=== PATIENT | male | born 1955 | race Hispanic/Latino ===

== ENCOUNTER → 2018-11-12 | Outpatient (CLI) | payer OTHER, MEDICARE ==
--- NOTE | 2018-11-12 12:38 | NUR ---
MBSS COMPLETED. -S/S OF ASPIRATION. RECOMMEND PUREED, THIN LIQUIDS; PILLS CRUSHED WITH APPLESAUCE. PATIENT INFORMATION: Pt IS A 62 YEAR OLD MALE REFERRED FOR AN MBSS SECONDARY TO [facility] IN [place] 3 WEEKS AGO. CAREGIVER REPORTS THAT THEY NOTICED THAT THE Pt HAD FINISHED EATING AND BROUGHT BACK A PIECE OF CHICKEN. Pt IS CURRENTLY IN A LONG TERM WHERE HE IS ASSISTED WITH ADLs. Pt DID NOT VERBALIZE DURING THE MBSS. Pt HAS A PAST MEDICAL HISTORY SIGNIFICANT FOR PROFOUND IDD, GERD, URINARY AND FECAL INCONTINENCE, CHRONIC CONSTIPATION, DYSPHAGIA, PARTIAL COMPLEX SEIZURES TONIC/CLONIC, SPASTIC QUADRIPLEGIA, CONTRACTURES OF JOINTS, KYPHOSIS/SCOLIOSIS, SPASTIC HIATAL HERNIA, HYPOTHYROIDISM, SUBLUXATION OF RIGHT SHOULDER DUE TO BRACHIAL PLEXUS INJURY A CHILD, ABDOMINAL LFTs, AND HYPERLIPIDEMIA. MBSS INTERPRETATION: PT PRESENTS WITH MODERATE ORAL AND MILD PHARYNGEAL DYSPHAGIA CAUSED BY DECREASED DECREASED ORAL MOTOR COORDINATION, TONGUE BASE RETRACTION, DELAYED PHARYNGEAL RESPONSE TRIGGER, EVIDENCED BY SEVERELY DECREASED ROTARY MOTION DURING MASTICATION, SOLID SWALLOWED WHOLE, POOLING IN VALLECULAE (CLEARED WITH INNATE RE-SWALLOW AND LIQUID WASH). NO PENETRATION OR ASPIRATION PRESENT AT THE TIME OF THE MBSS. PT IS AT HIGH RISK FOR CHOCKING WITH SOLIDS. TRIALS: 1. TSP PUREED: GOOD (RESIDUE IN VALLECULAE) 2. TSP PUDDING: GOOD (RESIDUE IN VALLECULAE CLEARED WITH RE-SWALLOW) 3. TSP MIXED: DECREASED MASTICATION, SWALLOWED BOLUS WHOLE 4. TSP THIN LIQUIDS: GOOD 5. CUP SIP THIN LIQUIDS BY ADZING AND BORING MACHINE FEEDER: GOOD 6. CUP SIP THIN LIQUIDS BY Pt: GOOD RECOMMENDATIONS: 1. PUREED, THIN LIQUIDS; PILLS CRUSHED WITH APPLESAUCE. 2. SAFE SWALLOW PRECAUTIONS: *SEATED AT 90 *SMALL BITES AND SIPS *ALTERNATE BITES AND SIPS RISKS AND CONSEQUENCES OF ASPIRATION WERE REVIEWED WITH Pt'S CAREGIVER. THEY WERE PROVIDED WITH A WRITTEN HANDOUT OF RECOMMENDATIONS. ALL QUESTIONS ANSWERED AT THIS TIME. G-CODES SWALLOWING: [id number] Addendum: 11/12/18 at 1250 by MATILDA PEREZ, [facility] Amended: Links added.
== END | disposition home or self-care (01) ==
LOC: RAH 08:43
PROVIDERS: ATTEND Internal Medicine
DX: R13.10 Dysphagia, unspecified (principal); R09.89 Other specified symptoms and signs involving the circulatory and respiratory systems; T17.928A Food in respiratory tract, part unspecified causing other injury, initial encounter; X58.XXXA Exposure to other specified factors, initial encounter; Y93.89 Activity, other specified; Y92.89 Other specified places as the place of occurrence of the external cause; Y99.8 Other external cause status
CPT/HCPCS: 74230; 92611

== ENCOUNTER → 2019-09-22 | Outpatient (CLI) | payer OTHER, MEDICARE ==
--- NOTE | 2019-09-22 11:00 | NUR ---
MBSS COMPLETED. -S/S OF ASPIRATION. RECOMMEND PUREED, THIN LIQUIDS; PILLS CRUSHED WITH APPLESAUCE. RECOMMENDATIONS: 1. COMPENSATORY STRATEGIES 2. GI CONSULT, PLEASE CONSIDER UPPER GI OFFICE MANAGER PROVIDED RESULTS AND RECOMMENDATIONS WITH CAREGIVER. Addendum: 09/22/19 at 1346 by MATILDA PEREZ, [facility] Amended: Links added.
== END | disposition home or self-care (01) ==
LOC: RAH 10:38
PROVIDERS: ATTEND Internal Medicine
DX: R13.12 Dysphagia, oropharyngeal phase (principal); R47.89 Other speech disturbances
CPT/HCPCS: 74230; 92611

== ENCOUNTER 2021-07-05 14:12 | Observation (INO) | payer OTHER, MEDICARE ==
[~2021-07-05] VITALS: Ht 152.4 cm; Wt 52.2 kg
[2021-07-05] MEDS ORDERED: 0.9%NACL 1000ML 1,000 ML IV ONE (15:30)
[2021-07-05 15:32] LABS: BASOPHILS % (AUTO) 0.4 % (0.0-5.0); EOSINOPHILS % (AUTO) 0.7 % (0.0-8.0); HEMATOCRIT 37.5 % (42-54); LYMPHOCYTES % (AUTO) 25.9 % (21.0-51.0); MEAN CORPUSCULAR HEMOGLOBIN 31.2 pg (27.0-33.0); MEAN CORPUSCULAR HGB CONC 31.7 g/dL (32.0-36.0); MEAN CORPUSCULAR VOLUME 98.2 fL (79-99); MONOCYTES % (AUTO) 18.5 % (3.0-13.0); NEUTROPHILS % (AUTO) 54.3 % (40.0-77.0); PLATELET COUNT (AUTO) 105 K/uL (130-400); RED BLOOD CELL COUNT(AUTO) 3.82 MIL/uL (4.50-6.20); RED CELL DISTRIBUTION WIDTH 13.4 % (11.0-15.5); WHITE BLOOD COUNT (AUTO) 4.6 K/uL (4.8-10.8)
[2021-07-05 15:48] LABS: BILIRUBIN,URINE Negative (NEGATIVE); COLOR,URINE Yellow (YELLOW); GLUCOSE, URINE (UA) Negative (NEGATIVE); KETONES,URINE Negative (NEGATIVE); LEUKOCYTE ESTERASE ,URINE Negative (NEGATIVE); NITRATE,URINE Negative (NEGATIVE); OCCULT BLOOD,URINE Negative (NEGATIVE); PH,URINE 7.5 (5.0-8.0); PROTEIN,URINE Negative (NEGATIVE)
[2021-07-05 15:49] LABS: APPEARANCE,URINE CLOUDY (CLEAR)
[2021-07-05 15:51] LABS: CREATININE 0.9 mg/dL (0.5-1.5); POTASSIUM 3.8 mmol/L (3.5-5.1)
[2021-07-05 16:14] LABS: ALBUMIN 2.4 g/dL (3.5-5.0); BILIRUBIN,TOTAL 0.3 mg/dL (0.2-1.0); TOTAL PROTEIN, SERUM 6.6 g/dL (6.0-8.3)
[2021-07-05 16:24] LABS: BACTERIA,URINE Few /HPF (None Seen); RBC,URINE None Seen /HPF (0-1); SQUAMOUS EPITHELIAL CELL,UR None Seen /HPF (0-2); WBC,URINE None Seen /HPF (0-1)
[2021-07-05 16:25] LABS: AMORPHOUS SEDIMENT,UR Many /LPF (None Seen)
[2021-07-05] MEDS ORDERED: IOHEXOL-350 75 ML VIAL IV ONE (17:36)
[2021-07-05] MEDS ORDERED: ZOSYN 3.375GM+NS 50ML 50 ML IV SCH (19:00)
[2021-07-05] MEDS ORDERED: ONDANSETRON 4MG INJ IVP PRN (20:00)
[2021-07-05] MEDS ORDERED: ACETAMINOPHEN 325 MG TAB PO PRN (20:00)
[2021-07-05] MEDS ORDERED: LORAZEPAM 2 MG/ML 1 ML VIAL IVP PRN (20:00)
[2021-07-05] MEDS: CEFTRIAXONE 1G VIAL IVP SCH (20:52)
[2021-07-05] MEDS: 0.9%NACL 1000ML 1,000 ML IV SCH (20:52)
[2021-07-05] MEDS ORDERED: HALOPERIDOL 5 MG TABLET PO PRN (22:30)
[2021-07-05] MEDS ORDERED: OXYB-66 PO (22:47)
[2021-07-05] MEDS ORDERED: TOPI200T16 PO (22:47)
[2021-07-05] MEDS ORDERED: DIVA500T69 PO (22:47)
[2021-07-05] MEDS ORDERED: PRAV40TA3 PO (22:47)
[2021-07-05] MEDS ORDERED: FAMO20TA8 PO (22:47)
[2021-07-05] MEDS ORDERED: LEVO75CA5 PO (22:47)
[2021-07-05] MEDS ORDERED: POLY17PO4 PO (22:47)
[2021-07-05] MEDS ORDERED: HALO5TAB2 PO (22:47)
[2021-07-05] MEDS ORDERED: LORA10TA7 PO (22:47)
[2021-07-05] MEDS ORDERED: DOCU-116 PO (22:47)
[2021-07-05] MEDS ORDERED: POTASSIUM CHLORIDE 10% ELIXIR 20 MEQ/15 ML UDCUP PO PRN (23:00)
[2021-07-05] MEDS ORDERED: DIPHENHYDRAMINE HCL 25 MG CAPSULE PO PRN (23:00)
[2021-07-05] MEDS ORDERED: KCL 20 MEQ ERTAB PO PRN (23:00)
[2021-07-05] MEDS ORDERED: DiphenhydrAMINE HCL 50 MG/ML VIAL IV PRN (23:00)
[2021-07-05] MEDS ORDERED: LIDOCAINE HCL-MPF 1% 2ML VIAL IV PRN (23:00)
[2021-07-05] MEDS ORDERED: POTASSIUM CHLORIDE 20MEQ/100ML 100 ML IV PRN (23:00)
[2021-07-06] VITALS (7 sets, daily range): BP systolic 107–141; BP diastolic 56–84
[2021-07-06] MEDS: 0.9%NACL 1000ML 1,000 ML IV SCH ×3 (03:34→14:50)
[2021-07-06 06:18] LABS: BASOPHILS % (AUTO) 0.4 % (0.0-5.0); HEMATOCRIT 33.3 % (42-54); LYMPHOCYTES % (AUTO) 29.5 % (21.0-51.0); MEAN CORPUSCULAR HEMOGLOBIN 31.3 pg (27.0-33.0); MEAN CORPUSCULAR HGB CONC 30.9 g/dL (32.0-36.0); MEAN CORPUSCULAR VOLUME 101.2 fL (79-99); MONOCYTES % (AUTO) 16.1 % (3.0-13.0); NEUTROPHILS % (AUTO) 52.8 % (40.0-77.0); PLATELET COUNT (AUTO) 98 K/uL (130-400); RED BLOOD CELL COUNT(AUTO) 3.29 MIL/uL (4.50-6.20); RED CELL DISTRIBUTION WIDTH 13.5 % (11.0-15.5); WHITE BLOOD COUNT (AUTO) 4.9 K/uL (4.8-10.8)
[2021-07-06 06:41] LABS: BILIRUBIN,TOTAL 0.3 mg/dL (0.2-1.0); CREATININE 0.6 mg/dL (0.5-1.5); POTASSIUM 3.7 mmol/L (3.5-5.1); TOTAL PROTEIN, SERUM 5.8 g/dL (6.0-8.3)
[2021-07-06] MEDS: LEVOTHYROXINE 75 MCG TABLET PO SCH (07:30)
[2021-07-06] MEDS: FAMOTIDINE 20MG TAB PO SCH (09:00)
[2021-07-06] MEDS: DOCUSATE SODIUM 100 MG CAP PO SCH ×2 (09:00→21:28)
[2021-07-06] MEDS: ENOXAPARIN SODIUM 30 MG/0.3 ML SQ SCH (09:00)
[2021-07-06] MEDS: POLYETHYLENE GLYCOL 3350 17 GM POWD.PACK PO SCH (09:00)
[2021-07-06] MEDS: LORATADINE 10 MG TABLET PO SCH (09:00)
[2021-07-06] MEDS: DIVALPROEX SODIUM 250 MG TABLET.DR PO SCH ×2 (09:00→14:00)
[2021-07-06] MEDS: TOPIRAMATE 100 MG TAB PO SCH ×2 (09:00→21:28)
[2021-07-06] MEDS ORDERED: ATORVASTATIN 10 MG TABLET PO SCH (21:00)
[2021-07-06] MEDS ORDERED: OXYBUTYNIN 5 MG TAB.SR.24H PO SCH (21:00)
[2021-07-06] MEDS: CEFTRIAXONE 1G VIAL IVP SCH (21:27)
[2021-07-06] MEDS: VALPROATE SOD 250 MG/5 ML (PO) PO SCH (21:28)
[2021-07-07] MEDS: 0.9%NACL 1000ML 1,000 ML IV SCH ×2 (00:30→11:37)
[2021-07-07 03:39] VITALS: BP 116/58
[2021-07-07] MEDS: LEVOTHYROXINE 75 MCG TABLET PO SCH (06:51)
[2021-07-07 08:00] VITALS: BP 125/67
[2021-07-07] MEDS: LORATADINE 10 MG TABLET PO SCH (10:53)
[2021-07-07] MEDS: FAMOTIDINE 20MG TAB PO SCH (10:53)
[2021-07-07] MEDS: TOPIRAMATE 100 MG TAB PO SCH (10:53)
[2021-07-07] MEDS: VALPROATE SOD 250 MG/5 ML (PO) PO SCH ×2 (10:56→14:57)
[2021-07-07] MEDS: POLYETHYLENE GLYCOL 3350 17 GM POWD.PACK PO SCH (11:01)
[2021-07-07] MEDS: ENOXAPARIN SODIUM 30 MG/0.3 ML SQ SCH (11:03)
[2021-07-07] MEDS: DOCUSATE SODIUM 100 MG CAP PO SCH (11:04)
[2021-07-07] MEDS ORDERED: CEPH500C2 PO (11:51)
[2021-07-07 12:00] VITALS: BP 106/73
== END 2021-07-07 17:45 | disposition home or self-care (01) ==
LOC: EDH 14:12 → EDHIP 18:55 → 3DH 07-06 04:00
PROVIDERS: ADMIT Internal Medicine; ATTEND Internal Medicine
DX: L03.115 Cellulitis of right lower limb (principal); Z20.822 Contact with and (suspected) exposure to COVID-19; K44.9 Diaphragmatic hernia without obstruction or gangrene; M41.9 Scoliosis, unspecified; G82.50 Quadriplegia, unspecified; E78.5 Hyperlipidemia, unspecified; R15.9 Full incontinence of feces; R32 Unspecified urinary incontinence; J18.9 Pneumonia, unspecified organism; R13.10 Dysphagia, unspecified; K76.0 Fatty (change of) liver, not elsewhere classified; E03.9 Hypothyroidism, unspecified; E78.2 Mixed hyperlipidemia; F13.20 Sedative, hypnotic or anxiolytic dependence, uncomplicated; S70.10XA Contusion of unspecified thigh, initial encounter; F73 Profound intellectual disabilities; G40.909 Epilepsy, unspecified, not intractable, without status epilepticus; K57.90 Diverticulosis of intestine, part unspecified, without perforation or abscess without bleeding; K80.20 Calculus of gallbladder without cholecystitis without obstruction; K82.8 Other specified diseases of gallbladder; M47.815 Spondylosis without myelopathy or radiculopathy, thoracolumbar region; M62.82 Rhabdomyolysis; M79.661 Pain in right lower leg; N31.9 Neuromuscular dysfunction of bladder, unspecified; Z79.890 Hormone replacement therapy; Z79.899 Other long term (current) drug therapy; Z98.890 Other specified postprocedural states; Z86.718 Personal history of other venous thrombosis and embolism
CPT/HCPCS: 36415 ×2; 71045; 73522; 74177; 80053 ×2; 81001; 82550 ×2; 83605; 85025 ×2; 87040 ×2; 87088; 87635; 93971; 96361 ×4; 96372; 96374; 96375; 96376; 99285; C9803; G0378 ×43; J0696 ×2; J1650; J2060; J7030 ×2; Q9967

== ENCOUNTER → 2022-05-29 | Outpatient (CLI) | payer OTHER, MEDICARE ==
[~2022-05-29] MED LIST: CEPH500C2 PO; DIVA500T69 PO; DOCU-116 PO; FAMO20TA8 PO; HALO5TAB2 PO; LEVO75CA5 PO; LORA10TA7 PO; OXYB-66 PO; POLY17PO4 PO; PRAV40TA3 PO; TOPI200T16 PO
[2022-05-29 12:53] LABS: HEMATOCRIT 33.3 % (42-54); PLATELET COUNT (AUTO) 167 K/uL (130-400)
[2022-05-29 12:59] LABS: PLATELET FUNCTION ANALYSIS ADP 87 SEC (62-100); PLATELET FUNCTION ANALYSIS EPI 76 SEC (55-192)
== END | disposition home or self-care (01) ==
LOC: LAB 11:38
PROVIDERS: ATTEND Internal Medicine Medical Oncology
DX: D68.9 Coagulation defect, unspecified (principal)
CPT/HCPCS: 36415; 85576

== ENCOUNTER 2022-06-28 11:18 | Inpatient (IN) | payer OTHER, MEDICARE ==
[~2022-06-28] VITALS: Ht 144.8 cm; Wt 54.4 kg
[2022-06-28] MEDS ORDERED: CEFTRIAXONE 1G VIAL IVP ONE (12:00)
[2022-06-28] MEDS ORDERED: 0.9%NACL 1000ML 1,000 ML IV ONE ×2 (12:00→16:27)
[2022-06-28 12:05] LABS: BASOPHILS % (AUTO) 0.1 % (0.0-5.0); HEMATOCRIT 40.5 % (42-54); LYMPHOCYTES % (AUTO) 9.5 % (21.0-51.0); MEAN CORPUSCULAR HEMOGLOBIN 29.7 pg (27.0-33.0); MEAN CORPUSCULAR HGB CONC 31.1 g/dL (32.0-36.0); MEAN CORPUSCULAR VOLUME 95.5 fL (79-99); MONOCYTES % (AUTO) 15.1 % (3.0-13.0); NEUTROPHILS % (AUTO) 74.8 % (40.0-77.0); NUCLEATED RED BLOOD CELLS 0.3 % (0.0-0.19); PLATELET COUNT (AUTO) 286 K/uL (130-400); RED BLOOD CELL COUNT(AUTO) 4.24 MIL/uL (4.50-6.20); RED CELL DISTRIBUTION WIDTH 15.2 % (11.0-15.5)
[2022-06-28 12:32] LABS: CREATININE 1.1 mg/dL (0.5-1.5)
[2022-06-28 12:35] LABS: TOTAL PROTEIN, SERUM 7.2 g/dL (6.0-8.3)
[2022-06-28] MEDS ORDERED: FLUT16H NASAL (16:16)
[2022-06-28] MEDS ORDERED: FERR-72 PO (16:16)
[2022-06-28] MEDS ORDERED: MULT1TAB61 PO (16:16)
[2022-06-28] MEDS ORDERED: DEXT1CAP3 PO (16:16)
[2022-06-28] MEDS ORDERED: CETI10TA57 PO (16:16)
[2022-06-28] MEDS ORDERED: OMEP20CA12 PO (16:16)
[2022-06-28] MEDS ORDERED: ACETAMINOPHEN 325 MG TAB PO PRN ×2 (17:00→22:00)
[2022-06-28] MEDS ORDERED: ONDANSETRON 4MG INJ IVP PRN (17:00)
[2022-06-28] MEDS: 0.9%NACL 1000ML 1,000 ML IV SCH (17:09)
[2022-06-28 17:52] LABS: APPEARANCE,URINE CLEAR (CLEAR); BILIRUBIN,URINE NEGATIVE (NEGATIVE); COLOR,URINE YELLOW (YELLOW); GLUCOSE, URINE (UA) NEGATIVE (NEGATIVE); KETONES,URINE NEGATIVE (NEGATIVE); LEUKOCYTE ESTERASE ,URINE NEGATIVE Leu/uL (NEGATIVE); NITRATE,URINE NEGATIVE (NEGATIVE); OCCULT BLOOD,URINE NEGATIVE (NEGATIVE); PROTEIN,URINE 20 mg/dL (NEGATIVE); UROBILINOGEN,URINE >=8.0 mg/dL (0.2-1.0)
[2022-06-28 17:57] LABS: MUCUS,URINE RARE LPF (None Seen); WBC,URINE 0-1 /HPF (0-1)
[2022-06-28 18:15] VITALS: BP 126/80
[2022-06-28 20:00] VITALS: BP 127/76
[2022-06-28] MEDS ORDERED: POTASSIUM CHLORIDE 20MEQ/100ML 100 ML IV PRN (22:00)
[2022-06-28] MEDS ORDERED: LIDOCAINE HCL-MPF 1% 2ML VIAL IV PRN (22:00)
[2022-06-28] MEDS ORDERED: ONDANSETRON 4MG INJ IV PRN (22:00)
[2022-06-28] MEDS ORDERED: ALBUTEROL 0.083% 2.5 MG/3 ML INH IH PRN (22:00)
[2022-06-28] MEDS ORDERED: KCL 20 MEQ ERTAB PO PRN (22:00)
[2022-06-28] MEDS ORDERED: GUAIFENESIN-DM 200/20 MG 10 ML PO PRN (22:00)
[2022-06-28] MEDS ORDERED: NON-FORMULARY MEDICATION 1 EACH (Cetirizine HCl 10 MG) PO PRN (22:00)
[2022-06-28] MEDS ORDERED: MAGNESIUM 2GM PREMIX 50ML 50 ML IV PRN (22:00)
[2022-06-28] MEDS ORDERED: MAG/ALUM/SIMETH 30 ML UDCUP PO PRN (22:00)
[2022-06-28] MEDS: MORPHINE 2 MG SYG IVP PRN (22:01)
[2022-06-28] MEDS ORDERED: CETIRIZINE HCL 5 MG TABLET PO PRN (22:30)
[2022-06-28 23:38] VITALS: BP 127/75
[2022-06-29] VITALS (25 sets, daily range): BP systolic 129–189; BP diastolic 69–98
[2022-06-29 03:53] LABS: HEMATOCRIT 33.7 % (42-54); MEAN CORPUSCULAR HEMOGLOBIN 29.6 pg (27.0-33.0); MEAN CORPUSCULAR HGB CONC 30.9 g/dL (32.0-36.0); NUCLEATED RED BLOOD CELLS 0.2 % (0.0-0.19); PLATELET COUNT (AUTO) 223 K/uL (130-400); RED BLOOD CELL COUNT(AUTO) 3.51 MIL/uL (4.50-6.20); RED CELL DISTRIBUTION WIDTH 15.1 % (11.0-15.5); WHITE BLOOD COUNT (AUTO) 8.2 K/uL (4.8-10.8)
[2022-06-29 04:01] LABS: CREATININE 0.7 mg/dL (0.5-1.5); POTASSIUM 3.6 mmol/L (3.5-5.1)
[2022-06-29] MEDS: MORPHINE 2 MG SYG IVP PRN ×2 (05:49→16:15)
[2022-06-29] MEDS: 0.9%NACL 1000ML 1,000 ML IV SCH (06:20)
[2022-06-29] MEDS: LEVOTHYROXINE 75 MCG TABLET PO SCH (06:30)
[2022-06-29] MEDS ORDERED: NON-FORMULARY MEDICATION 1 EACH (Ferrous Sulfate 325 MG) PO SCH (09:00)
[2022-06-29] MEDS: MULTIVITAMIN TABLET PO SCH (09:00)
[2022-06-29] MEDS: PANTOPRAZOLE 40 MG TAB DR PO SCH (09:00)
[2022-06-29] MEDS ORDERED: NON-FORMULARY MEDICATION 1 EACH (Levothyroxine Sodium (Levothyroxine) 75 MCG) PO SCH (09:00)
[2022-06-29] MEDS ORDERED: [UNRECOGNIZED DRUG - OTHER] PO SCH (09:00)
[2022-06-29] MEDS ORDERED: FAMOTIDINE 20MG TAB PO SCH (09:00)
[2022-06-29] MEDS ORDERED: MULTIVITAMIN W MINERALS PO SCH (09:00)
[2022-06-29] MEDS ORDERED: LUTEIN PO SCH (09:00)
[2022-06-29] MEDS: FERROUS SULFATE 325 MG TABLET.DR PO SCH (09:00)
[2022-06-29] MEDS ORDERED: NON-FORMULARY MEDICATION 1 EACH (Omeprazole 20 MG) PO SCH (09:00)
[2022-06-29 09:28] LABS: ALBUMIN 1.6 g/dL (3.5-5.0); BILIRUBIN,DIRECT 1.5 mg/dL (0.0-0.3); TOTAL PROTEIN, SERUM 5.8 g/dL (6.0-8.3)
[2022-06-29] MEDS ORDERED: SUGAMMADEX SODIUM 200 MG/2 ML VIAL IV ONE (10:18)
[2022-06-29] MEDS ORDERED: ROCURONIUM 10MG/1ML SYR 10 MG/ML ML ONE (10:19)
[2022-06-29] MEDS ORDERED: PROPOFOL 10 MG/ML 20ML VIAL IV ONE (10:19)
[2022-06-29] MEDS ORDERED: MEPERIDINE-PF 25 MG/ML SYG ONE (11:22)
[2022-06-29] MEDS: 1/2 NS 1000ML 1,000 ML IV SCH (12:46)
[2022-06-29] MEDS: CEFTRIAXONE 1G VIAL IVP SCH (12:46)
[2022-06-29 13:38] LABS: POTASSIUM 3.8 mmol/L (3.5-5.1)
[2022-06-29] MEDS: Pravastatin Sodium 40 MG PO SCH (21:00)
[2022-06-29] MEDS: OXYBUTYNIN 5 MG TAB.SR.24H PO SCH (21:04)
[2022-06-30] MEDS: MORPHINE 2 MG SYG IVP PRN ×2 (03:08→07:32)
[2022-06-30 04:16] VITALS: BP 156/68
[2022-06-30 04:52] LABS: HEMATOCRIT 34.5 % (42-54); MEAN CORPUSCULAR HEMOGLOBIN 29.2 pg (27.0-33.0); MEAN CORPUSCULAR HGB CONC 30.1 g/dL (32.0-36.0); MEAN CORPUSCULAR VOLUME 96.9 fL (79-99); NUCLEATED RED BLOOD CELLS 0.8 % (0.0-0.19); RED BLOOD CELL COUNT(AUTO) 3.56 MIL/uL (4.50-6.20); WHITE BLOOD COUNT (AUTO) 7.4 K/uL (4.8-10.8)
[2022-06-30 05:10] LABS: CREATININE 0.6 mg/dL (0.5-1.5); POTASSIUM 3.4 mmol/L (3.5-5.1)
[2022-06-30] MEDS: 1/2 NS 1000ML 1,000 ML IV SCH (05:22)
[2022-06-30] MEDS: POTASSIUM CHLORIDE 10% ELIXIR 20 MEQ/15 ML UDCUP PO PRN ×2 (05:22→07:10)
[2022-06-30] MEDS: LEVOTHYROXINE 75 MCG TABLET PO SCH (05:23)
[2022-06-30 08:30] VITALS: BP 133/74
[2022-06-30] MEDS: DEXTROSE 5%-WATER 1,000 ML IV SCH (10:00)
[2022-06-30] MEDS: MULTIVITAMIN TABLET PO SCH (10:33)
[2022-06-30] MEDS: PANTOPRAZOLE 40 MG TAB DR PO SCH (10:33)
[2022-06-30] MEDS: FERROUS SULFATE 325 MG TABLET.DR PO SCH (10:33)
[2022-06-30] MEDS: CEFTRIAXONE 1G VIAL IVP SCH (10:40)
[2022-06-30 11:00] VITALS: BP 140/72
[2022-06-30 16:00] VITALS: BP 123/88
[2022-06-30 20:00] VITALS: BP 152/66
[2022-06-30] MEDS: OXYBUTYNIN 5 MG TAB.SR.24H PO SCH (20:52)
[2022-06-30] MEDS: Pravastatin Sodium 40 MG PO SCH (21:00)
[2022-06-30] MEDS: MORPHINE 4 MG SYG IVP PRN (21:14)
[2022-07-01] VITALS (7 sets, daily range): BP systolic 106–145; BP diastolic 55–88
[2022-07-01] MEDS: MORPHINE 4 MG SYG IVP PRN (02:39)
[2022-07-01 05:39] LABS: ALBUMIN 1.6 g/dL (3.5-5.0); BILIRUBIN,DIRECT 2.7 mg/dL (0.0-0.3); CREATININE 0.5 mg/dL (0.5-1.5); TOTAL PROTEIN, SERUM 5.3 g/dL (6.0-8.3)
[2022-07-01] MEDS: LEVOTHYROXINE 75 MCG TABLET PO SCH (06:01)
[2022-07-01] MEDS: DEXTROSE 5%-WATER 1,000 ML IV SCH (06:33)
[2022-07-01 07:03] LABS: HEMATOCRIT 31.9 % (42-54); MEAN CORPUSCULAR HEMOGLOBIN 30.4 pg (27.0-33.0); MEAN CORPUSCULAR HGB CONC 30.1 g/dL (32.0-36.0); MEAN CORPUSCULAR VOLUME 100.9 fL (79-99); NUCLEATED RED BLOOD CELLS 2.1 % (0.0-0.19); RED BLOOD CELL COUNT(AUTO) 3.16 MIL/uL (4.50-6.20); RED CELL DISTRIBUTION WIDTH 15.6 % (11.0-15.5); WHITE BLOOD COUNT (AUTO) 4.7 K/uL (4.8-10.8)
[2022-07-01] MEDS: MORPHINE 2 MG SYG IVP PRN ×3 (08:23→22:24)
[2022-07-01] MEDS: PANTOPRAZOLE 40 MG TAB DR PO SCH (09:00)
[2022-07-01] MEDS: MULTIVITAMIN TABLET PO SCH (09:00)
[2022-07-01] MEDS: FERROUS SULFATE 325 MG TABLET.DR PO SCH (09:00)
[2022-07-01] MEDS: CEFTRIAXONE 1G VIAL IVP SCH (09:27)
[2022-07-01] MEDS ORDERED: IOHEXOL-350 50ML VIAL IV ONE (14:32)
[2022-07-01] MEDS: DIPHENHYDRAMINE HCL 25 MG CAPSULE PO PRN (21:21)
[2022-07-01] MEDS: OXYBUTYNIN 5 MG TAB.SR.24H PO SCH (21:21)
[2022-07-02 03:55] VITALS: BP 148/71
[2022-07-02] MEDS: MORPHINE 2 MG SYG IVP PRN ×5 (04:47→20:15)
[2022-07-02 05:04] LABS: HEMATOCRIT 31.5 % (42-54); MEAN CORPUSCULAR HGB CONC 31.1 g/dL (32.0-36.0); MEAN CORPUSCULAR VOLUME 96.3 fL (79-99); NUCLEATED RED BLOOD CELLS 1.6 % (0.0-0.19); RED BLOOD CELL COUNT(AUTO) 3.27 MIL/uL (4.50-6.20); RED CELL DISTRIBUTION WIDTH 16.1 % (11.0-15.5); WHITE BLOOD COUNT (AUTO) 6.4 K/uL (4.8-10.8)
[2022-07-02 05:19] LABS: ALBUMIN 1.8 g/dL (3.5-5.0); BILIRUBIN,DIRECT 1.1 mg/dL (0.0-0.3); CREATININE 0.5 mg/dL (0.5-1.5); POTASSIUM 3.7 mmol/L (3.5-5.1)
[2022-07-02] MEDS: LEVOTHYROXINE 75 MCG TABLET PO SCH (05:19)
[2022-07-02] MEDS: DEXTROSE 5%-WATER 1,000 ML IV SCH ×2 (05:20→20:50)
[2022-07-02 08:00] VITALS: BP 153/68
[2022-07-02] MEDS: CEFTRIAXONE 1G VIAL IVP SCH (09:16)
[2022-07-02] MEDS: MULTIVITAMIN TABLET PO SCH (09:16)
[2022-07-02] MEDS: PANTOPRAZOLE 40 MG TAB DR PO SCH (09:16)
[2022-07-02] MEDS: FERROUS SULFATE 325 MG TABLET.DR PO SCH (09:16)
[2022-07-02 11:28] VITALS: BP 135/56
[2022-07-02] MEDS ORDERED: BISACODYL 10 MG SUPP.RECT RC ONE (14:00)
[2022-07-02] MEDS ORDERED: LACTULOSE 20 GM/30 ML UDCUP PO ONE ×2 (14:30→15:00)
[2022-07-02 16:00] VITALS: BP 140/84
[2022-07-02 20:14] VITALS: BP 103/52
[2022-07-02] MEDS: OXYBUTYNIN 5 MG TAB.SR.24H PO SCH (20:14)
[2022-07-02] MEDS: DIPHENHYDRAMINE HCL 25 MG CAPSULE PO PRN (20:14)
[2022-07-02 23:38] VITALS: BP 122/71
[2022-07-03] MEDS: DIPHENHYDRAMINE HCL 25 MG CAPSULE PO PRN (01:30)
[2022-07-03] MEDS: MORPHINE 2 MG SYG IVP PRN ×3 (01:30→13:44)
[2022-07-03 04:15] VITALS: BP 108/63
[2022-07-03] MEDS: LEVOTHYROXINE 75 MCG TABLET PO SCH (06:40)
[2022-07-03 08:00] VITALS: BP_SYST 113; BP_SYST 125; BP_DIAS 70; BP_DIAS 77
[2022-07-03 08:28] LABS: ALBUMIN 1.6 g/dL (3.5-5.0); CREATININE 0.5 mg/dL (0.5-1.5); POTASSIUM 3.6 mmol/L (3.5-5.1); TOTAL PROTEIN, SERUM 5.5 g/dL (6.0-8.3)
[2022-07-03] MEDS: CEFTRIAXONE 1G VIAL IVP SCH (09:37)
[2022-07-03] MEDS: MULTIVITAMIN TABLET PO SCH (09:37)
[2022-07-03] MEDS: FERROUS SULFATE 325 MG TABLET.DR PO SCH (09:38)
[2022-07-03] MEDS: PANTOPRAZOLE 40 MG TAB DR PO SCH (09:38)
[2022-07-03 12:00] VITALS: BP 116/60
[2022-07-03] MEDS: LACTULOSE 20 GM/30 ML UDCUP PO PRN ×2 (13:43→16:05)
[2022-07-03 13:58] LABS: PROTHROMBIN TIME 10.9 SEC (9.6-11.6)
[2022-07-03 14:00] LABS: PARTIAL THROMBOPLASTIN TIME 30.6 SEC (26.3-35.5)
[2022-07-03] MEDS ORDERED: MAGNESIUM HYDROXIDE 30 ML/UDCUP PO PRN (14:30)
[2022-07-03] MEDS ORDERED: MAGNESIUM HYDROXIDE 30 ML/UDCUP ONE (14:50)
[2022-07-03 16:00] VITALS: BP 120/90
[2022-07-03] MEDS ORDERED: LACTULOSE 20 GM/30 ML UDCUP PO PRN (16:30)
== END 2022-07-03 17:50 | disposition home or self-care (01) | DRG 562 ==
LOC: EDH 11:18 → EDHIP 16:00 → 4DH 18:34
PROVIDERS: ADMIT Internal Medicine; ATTEND Internal Medicine
PROC: 0RSKXZZ Reposition Left Shoulder Joint, External Approach (ICD-10-PCS; principal; 2022-06-29 10:21)
DX: S42.92XA Fracture of left shoulder girdle, part unspecified, initial encounter for closed fracture (principal); R53.2 Functional quadriplegia; E87.20 Acidosis, unspecified; F13.20 Sedative, hypnotic or anxiolytic dependence, uncomplicated; D68.9 Coagulation defect, unspecified; E87.0 Hyperosmolality and hypernatremia; Z20.822 Contact with and (suspected) exposure to COVID-19; K44.9 Diaphragmatic hernia without obstruction or gangrene; M41.9 Scoliosis, unspecified; G40.909 Epilepsy, unspecified, not intractable, without status epilepticus; E86.0 Dehydration; E88.09 Other disorders of plasma-protein metabolism, not elsewhere classified; D64.9 Anemia, unspecified; E03.9 Hypothyroidism, unspecified; E78.2 Mixed hyperlipidemia; I10 Essential (primary) hypertension; K57.90 Diverticulosis of intestine, part unspecified, without perforation or abscess without bleeding; K59.00 Constipation, unspecified; M47.9 Spondylosis, unspecified; Z86.16 Personal history of COVID-19; Y93.89 Activity, other specified; X58.XXXA Exposure to other specified factors, initial encounter; Y92.89 Other specified places as the place of occurrence of the external cause; Y99.8 Other external cause status
CPT/HCPCS: 36415; 71045; 73020; 73030; 73060; 74176; 74230; 80048; 80051; 80053; 80076; 81001; 83605; 85025; 85027; 85378; 85610; 85651; 85730; 87040; 87635; 87804; 92611; 93005; 93970; 94664; C9803; G0378; J0696; J2175; J2270; J2405; J2704; J3480; J3490; J7030; J7070; Q0163; Q9967

== ENCOUNTER → 2022-07-18 | Outpatient (CLI) | payer OTHER, MEDICARE ==
[~2022-07-18] MED LIST changes: -CEPH500C2 PO; +CETI10TA57 PO; +DEXT1CAP3 PO; -DIVA500T69 PO; -DOCU-116 PO; +FERR-72 PO; +FLUT16H NASAL; -HALO5TAB2 PO; -LORA10TA7 PO; +MULT1TAB61 PO; +OMEP20CA12 PO; -POLY17PO4 PO; -TOPI200T16 PO
== END | disposition home or self-care (01) ==
LOC: RAH 13:15
PROVIDERS: ATTEND Internal Medicine
DX: J90 Pleural effusion, not elsewhere classified (principal); K44.9 Diaphragmatic hernia without obstruction or gangrene; R58 Hemorrhage, not elsewhere classified; I70.0 Atherosclerosis of aorta; Z87.01 Personal history of pneumonia (recurrent); J98.11 Atelectasis
CPT/HCPCS: 71250

== ENCOUNTER → 2023-01-17 | Outpatient (CLI) | payer OTHER, MEDICARE | END | disposition home or self-care (01) | LOC: RAH 08:49 | PROVIDERS: ATTEND Internal Medicine | DX: S20.219A Contusion of unspecified front wall of thorax, initial encounter (principal); K44.9 Diaphragmatic hernia without obstruction or gangrene; M40.294 Other kyphosis, thoracic region; M47.815 Spondylosis without myelopathy or radiculopathy, thoracolumbar region; X58.XXXA Exposure to other specified factors, initial encounter | CPT/HCPCS: 71250 ==

== ENCOUNTER → 2023-01-20 | Outpatient (CLI) | payer OTHER, MEDICARE | END | disposition home or self-care (01) | LOC: RAH 14:00 | PROVIDERS: ATTEND Internal Medicine | DX: T14.8XXA Other injury of unspecified body region, initial encounter (principal); M25.511 Pain in right shoulder; X58.XXXA Exposure to other specified factors, initial encounter; Y93.89 Activity, other specified; Y92.89 Other specified places as the place of occurrence of the external cause; Y99.8 Other external cause status | CPT/HCPCS: 73030 ==

== ENCOUNTER 2023-03-22 13:43 | Emergency (ER) | payer OTHER, MEDICARE ==
[~2023-03-22] VITALS: Ht 160 cm; Wt 65.8 kg
[2023-03-22 13:47] VITALS: BP 123/65; PULSE 75; RESP 18
[2023-03-22] MEDS ORDERED: AMOX1TAB16 PO (15:47)
== END 2023-03-22 16:13 | disposition home or self-care (01) ==
LOC: EDH 13:43
DX: J69.0 Pneumonitis due to inhalation of food and vomit (principal); E78.00 Pure hypercholesterolemia, unspecified; K21.9 Gastro-esophageal reflux disease without esophagitis; Z88.5 Allergy status to narcotic agent; Z79.899 Other long term (current) drug therapy
CPT/HCPCS: 71045

== ENCOUNTER → 2023-03-25 | Outpatient (CLI) | payer OTHER, MEDICARE ==
[~2023-03-25] MED LIST changes: +AMOX1TAB16 PO
== END | disposition home or self-care (01) ==
LOC: RAH 14:07
PROVIDERS: ATTEND Internal Medicine Medical Oncology
DX: S42.291A Other displaced fracture of upper end of right humerus, initial encounter for closed fracture (principal); T14.8XXA Other injury of unspecified body region, initial encounter; X58.XXXA Exposure to other specified factors, initial encounter; Y93.89 Activity, other specified; Y92.89 Other specified places as the place of occurrence of the external cause; Y99.8 Other external cause status
CPT/HCPCS: 77075

== ENCOUNTER 2024-06-02 22:22 | Emergency (ER) | payer OTHER, MEDICARE ==
[~2024-06-02] VITALS: Ht 121.9 cm; Wt 68.0 kg
--- NOTE | 2024-06-02 23:46 | ERN ---
ED Note History of Present Illness Stated Complaint: C/O LACERATION TO FOREHEAD AFTER FALL OFF Chief Complaint: Laceration/Avulsion Time Seen by MD: 22:35 Time Seen by Midlevel: 22:35 Dictation: The patient is a 68-year-old male with a history of GERD, seizures, mental delayed, spastic quadriplegia who presents to the emergency department with complaints of forehead laceration after an accidental fall from wheelchair. Per patient is characterized patient fell forward hitting his head on tire. Denies any LOC, nausea or vomiting. Denies any use of blood thinners. Patient is nonverbal. Acting appropriate as per cardiologist. No other injuries reported. Allergies: Coded Allergies: meperidine (Unverified Allergy, Unknown, 07/05/21) pentazocine (Unverified Allergy, Unknown, 07/05/21) Home Meds Active Scripts Amoxicillin/Potassium Clav (Amox Tr-K Clv 875-125 mg Tab) 1 Each Tablet, 1 EACH PO BID for 7 Days, #14 TAB 0 Refills Prov:SUSU DE JESUS MD 03/22/23 Cetirizine HCl (Cetirizine HCl) 10 Mg Tablet, 10 MG PO DAILY PRN for allergies, #30 TAB Prov:GRETCHEN DAY MD 06/28/22 Multivitamin W-Minerals/Lutein (Cerovite Senior Tablet) 1 Each Tablet, 1 EACH PO DAILY, #90 TAB Prov:GRETCHEN DAY MD 06/28/22 Dextromethorphan HBr/Quinidine (Nuedexta 20-10 mg Capsule) 1 Each Capsule, 1 EACH PO BID, #180 CAP Prov:GRETCHEN ADY MD 06/28/22 Fluticasone Propionate (Flonase Nasal [place]) 50 Mcg/[place], 2 SPRAY NASAL QDP PRN for allegies, #30 SPRAY Prov:GRETCHEN DAY MD 06/28/22 Ferrous Sulfate (Ferrous Sulfate) 325 Mg Tablet, 325 MG PO DAILY, #90 TAB Prov:GRETCHEN DAY MD 06/28/22 Omeprazole (Omeprazole) 20 Mg Capsule.dr, 20 MG PO DAILY, #90 CAP Prov:GRETCHEN DAY MD 06/28/22 Pravastatin Sodium (Pravastatin Sodium) 40 Mg Tablet, 40 MG PO HS, #90 TAB 1 Refill Prov:GRETCHEN DAY MD 07/05/21 Oxybutynin Chloride (Oxybutynin Chloride ER) 5 Mg Tab.er.24, 5 MG PO HS, #90 MG 1 Refill Prov:GRETCHEN DAY MD 07/05/21 Levothyroxine Sodium (Levothyroxine) 75 Mcg Capsule, 75 MCG PO DAILY, #90 CAP 1 Refill Prov:GRETCHEN DAY MD 07/05/21 Famotidine (Famotidine) 20 Mg Tablet, 20 MG PO DAILY, #90 TAB 1 Refill Prov:GRETCHEN DAY MD 07/05/21 Past Medical History Past Medical History: Hypothyroid, Seizure, Other Additional Past Medical Hx: HX OF SPASTIC QUADRIPLEGIA, ACID REFLUX, SCOIOSIS Surgical History: Unknown Social History: Negative, Other RN Note Reviewed/Agreed w/PFSH: Yes Review of System Dictation Constitutional: Negative for fever,chills, and weight loss Eyes: Negative for injury, pain,redness, and discharge ENT: Negative for injury,pain or swelling Cardiovascular: Negative for chest pain, palpitations, and edema Respiratory: Negative for shortness of breath, cough, and wheezing, Abdomen/GI: Negative for abdominal pain, nausea, vomiting, diarrhea, and constipation Back: Negative for injury and pain : Negative for injury, bleeding and discharge MS/Extremity: Negative for injury and deformity Skin: Negative for rash, and discoloration positive for right forehead laceration Neuro: Negative for headache, weakness, numbness, tingling, and seizure Psych: Negative for suicide ideation, homicidal ideation, and hallucinations Initial Vital Sign VS Vital Signs Date Time Temp Pulse Resp B/P (MAP) Pulse Ox O2 Delivery O2 Flow Rate FiO2 06/02/24 22:25 97.5 20 98 Room Air 06/03/24 01:59 86 0 21 Physical Exam Dictation Vital Signs reviewed General Appearance: Alert, , no acute distress, well developed, nourished. Head and Face: non-traumatic. Eyes: PERRL, pink conjunctivas, eyelid no trauma, anterior chamber with arcus senilis. Ears: Pinnas intact and no signs of trauma or erythema ear canals clear and no discharge TM no erythema Nose: No discharge, no bleeding. Oropharynx: Mouth normal, tongue pink. pharynx clear,no erythema, tonsils no exudates, no abscesses noted, mucous membrane moist Neck: Supple, non-tender, no thyromegaly, no masses, no JVD, no bruits Breast:Deferred Chest:No tenderness, no crepitus, no paradoxical movement, no retractions Lungs:Clear, well-ventilated, symmetric, no rales, no wheezing, no rhonchi, no stridor, good breath sounds bilaterally Heart: Regular rate, regular rhythm, no murmur, no gallops Vascular: no peripheral edema, Abdomen: Soft, positive bowel sounds, nondistended, no guarding, nontender, no rebound, no masses no hepatomegaly, no splenomegaly, no Chan's sign, no hernias. Rectal: Deferred Genital: Deferred Neurological: Nonverbal, minimal movement to upper ext, contractured lower ext. Musculoskeletal: Neck nontender, full range of motion, back nontender, full range of motion, Extremities: nontender, Skin: Color pink, dry, no turgor, no rash, no lacerations, no abrasions, no contusions. Two small superficial lacerations about 2 cm to right forehead, no active bleeding Lymphatic: Deferred Results (Laboratory/Radiology) Laboratory/Radiology REASON: fall, head trauma ORDERING PHYSICIAN: COY MARION PROCEDURE: HEAD WO - CT HEAD/BRAIN W/O CONTRAST CT HEAD/BRAIN W/O CONTRAST HISTORY: Status post fall COMPARISON: None TECHNIQUE: Multiple sequential axial images of the head were obtained from the base of the skull through vertex. Patient was not given contrast through intravenous route. FINDINGS: The ventricles and extraventricular CSF spaces are dilated consistent with cerebral atrophy. Nonspecific white matter changes seen. 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 There is no midline shift, mass effect or herniation. No acute intracranial bleed is seen. Visualized portion of the paranasal sinuses are grossly within normal limits. The study is limited due to poor positioning and motion artifacts. IMPRESSION: 1. No acute intracranial bleed is seen. 2. Atrophy with white matter changes. 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 CT was performed with one or more following dose reduction techniques: automated exposure control, adjustment of the mA and kv according to patient's size, or use of a iterative reconstruction technique. REASON: fall, head trauma ORDERING PHYSICIAN: COY MARION DRY CHAIN OFFBEARER PROCEDURE: C SPIN WO - CT CERVICAL SPINE W/O CONTRAST CT CERVICAL SPINE W/O CONTRAST HISTORY: Status post fall COMPARISON: None TECHNIQUE: Multiple sequential axial images of the cervical spine were obtained including post processing sagittal and coronal reconstruction images. Patient was not given contrast through intravenous route. FINDINGS: Anterior subluxation is seen of C4 over C5. There is cervical spine spondylosis with central canal narrowing predominantly at C3-4 through C6-7 and posterior There is straightening of normal lordotic cervical curvature which may be related to muscle spasm or positioning. There is no loss of vertebral height. Evaluation for disc and cord pathology is limited with CT study. No evidence of fracture or dislocation is seen. IMPRESSION: 1. Motion artifacts degrading the image quality. DJD with spondylosis. No fracture is seen. CT was performed with one or more following dose reduction techniques: automated exposure control, adjustment of the mA and kv according to patient's size, or use of a iterative reconstruction technique. Labs Reviewed?: Yes ED Course ED Course Orders Procedure Category Date Status Time Wound Care (Er) CPOE 06/02/24 Transmitted 22:41 Lorazepam 2 Mg PHA 06/03/24 Complete (Ativan) 00:00 Haloperidol Inj PHA 06/03/24 Complete (Haldol Inj) 00:00 Ct Head/Brain W/O CT 06/03/24 Resulted Contrast 00:01 Ct Cervical Spine W/O CT 06/03/24 Resulted Contrast 00:01 Current Medications Medications (Trade) Dose Ordered Sig/Amy Route PRN Reason Start Time Stop Time Status Last Admin Dose Admin Haloperidol Lactate (Haldol Inj) 5 mg ONCE ONCE IM 06/03/24 00:00 06/03/24 00:01 DC 06/03/24 00:15 Lorazepam (AtiVAN) 1 mg ONCE ONCE IM 06/03/24 00:00 06/03/24 00:01 DC 06/03/24 00:16 Vital Signs Date Time Temp Pulse Resp B/P (MAP) Pulse Ox O2 Delivery O2 Flow Rate FiO2 06/03/24 01:59 98.4 86 18 148/88 99 Room Air* 0 21 06/02/24 22:25 97.5 20 98 Room Air Medical Decision Making MDM The patient is a 68-year-old male with a history of GERD, seizures, mental delayed, spastic quadriplegia who presents to the emergency department with complaints of forehead laceration after an accidental fall from wheelchair. Per patient is characterized patient fell forward hitting his head on tire. Denies any LOC, nausea or vomiting. Denies any use of blood thinners. Patient is nonverbal. Acting appropriate as per cardiologist. No other injuries reported. Patient up-to-date with tetanus The head showed no acute intracranial bleed, atrophy changes old MCA infarct, CT spine showed no acute fractures, DJD with spondylosis. Anterior subluxation of C4 over C5. forehead wound superficial for any sutures. Wound care performed. no Active bleeding.Imaging results discussed with patient's caregiver who agreed to follow up with PCP. Patient continues in no distress, we will be discharged. Differential diagnosis: Laceration, head contusion, intracranial hemorrhage, C- spine fracture Need for hospitalization: Patient does not meet criteria for hospitalization. There are no social concerns with this patient. DX & DISP Disposition: Discharge Departure Impression: Primary Impression: Fall Additional Impressions: Head contusion, Forehead laceration Condition: Stable Additional Instructions: Please keep wound clean and dry. Of any symptoms of infection develop like erythema, fevers, drainage develop please visit your primary doctor if symptoms worsen please return to ER. FOLLOW-UP WITH PRIMARY CARE PROVIDER IN 1 TO 2 DAYS. TAKE MEDICATIONS DIRECTED HERE IN THE EMERGENCY ROOM. OKAY TO CONTINUE HOME MEDICATIONS UNLESS OTHERWISE DISCUSSED DURING YOUR VISIT IN THE EMERGENCY ROOM TODAY. RETURN TO YOUR NEAREST EMERGENCY ROOM IF SYMPTOMS WORSEN OR IF THERE IS NO IMPROVEMENT. CALL 911 IF YOU NEED IMMEDIATE ASSISTANCE. TAKE TYLENOL OR MOTRIN [id number] NEEDED AND IF NO CONTRAINDICATIONS ARE PRESENT. INCREASE ORAL HYDRATION. A WOUND CULTURE OR URINE CULTURE WAS ORDERED HERE IN THE EMERGENCY ROOM DEPARTMENT PLEASE FOLLOW-UP WITH PRIMARY CARE PROVIDER AND ADVISE THEM TO GET REPEAT PORTS FROM OUR FACILITY. IF YOU HAD ANY JENNI WRAP/SPLINTS THAT WERE APPLIED HERE, PLEASE DO NOT REMOVE THEM UNTIL YOU SEE YOUR PRIMARY CARE OR SPECIALTY. Referrals: GRETCHEN DAY MD (PCP) Time of Disposition: 02:39 I have reviewed the case, and I agree with, Diagnosis and Plan COY MARION [facility] Jun 02, 2024 23:46
[2024-06-03] MEDS: HALOPERIDOL INJ 5 MG/ML VIAL IM ONE (00:15)
[2024-06-03] MEDS: LORazepam 2 MG/ML 1 ML VIAL IM ONE (00:16)
--- NOTE | 2024-06-03 01:48 | HMCIMG ---
CT HEAD/BRAIN W/O CONTRAST HISTORY: Status post fall COMPARISON: None TECHNIQUE: Multiple sequential axial images of the head were obtained from the base of the skull through vertex. Patient was not given contrast through intravenous route. FINDINGS: The ventricles and extraventricular CSF spaces are dilated consistent with cerebral atrophy. Nonspecific white matter changes seen. 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 There is no midline shift, mass effect or herniation. No acute intracranial bleed is seen. Visualized portion of the paranasal sinuses are grossly within normal limits. The study is limited due to poor positioning and motion artifacts. IMPRESSION: 1. No acute intracranial bleed is seen. 2. Atrophy with white matter changes. 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 CT was performed with one or more following dose reduction techniques: automated exposure control, adjustment of the mA and kv according to patient's size, or use of a iterative reconstruction technique.
--- NOTE | 2024-06-03 01:49 | HMCIMG ---
CT CERVICAL SPINE W/O CONTRAST HISTORY: Status post fall COMPARISON: None TECHNIQUE: Multiple sequential axial images of the cervical spine were obtained including post processing sagittal and coronal reconstruction images. Patient was not given contrast through intravenous route. FINDINGS: Anterior subluxation is seen of C4 over C5. There is cervical spine spondylosis with central canal narrowing predominantly at C3-4 through C6-7 and posterior There is straightening of normal lordotic cervical curvature which may be related to muscle spasm or positioning. There is no loss of vertebral height. Evaluation for disc and cord pathology is limited with CT study. No evidence of fracture or dislocation is seen. IMPRESSION: 1. Motion artifacts degrading the image quality. DJD with spondylosis. No fracture is seen. CT was performed with one or more following dose reduction techniques: automated exposure control, adjustment of the mA and kv according to patient's size, or use of a iterative reconstruction technique.
[2024-06-03 01:59] VITALS: TEMP 98.5
--- NOTE | 2024-06-03 02:00 | NUR ---
PT CARE ASSUMED AT THIS TIME
[2024-06-03 03:07] VITALS: BP 151/83; PULSE 67; RESP 14; O2SAT 95
== END 2024-06-03 03:21 | disposition home or self-care (01) ==
LOC: EDH 22:22
DX: S01.81XA Laceration without foreign body of other part of head, initial encounter (principal); E03.9 Hypothyroidism, unspecified; K21.9 Gastro-esophageal reflux disease without esophagitis; Z79.890 Hormone replacement therapy; Z79.899 Other long term (current) drug therapy; Z88.5 Allergy status to narcotic agent; W07.XXXA Fall from chair, initial encounter; Y93.89 Activity, other specified; Y92.89 Other specified places as the place of occurrence of the external cause; Y99.8 Other external cause status
CPT/HCPCS: 99285; 70450; 72125; 96372 ×2; J1630; J2060